=== PATIENT | female | born 1995 | race Caucasian/White ===

== ENCOUNTER 2025-03-19 17:49 | Observation (INO) | payer OTHER, SELFPAY ==
[2025-03-19] VITALS (8 sets, daily range): BP systolic 126–137; BP diastolic 79–88; BMI 29.2
[2025-03-19 12:37] LABS: Hematocrit 34.6 % (37.0-47.0); Hemoglobin 11.9 g/dL (12.0-16.0); Mean Corp Hgb Conc. 34.4 g/dL (33.0-37.0); Mean Corpuscular Volume 92.0 fL (81.0-99.0); Nucleated Red Blood Cells % 0 %; Platelet Count 264 10^3/uL (130-400); Red Cell Dist. Width 12.7 % (11.5-14.5)
[2025-03-19 12:50] LABS: ALT (SGPT) 35 U/L (0-35); AST (SGOT) 42 U/L (14-36); Albumin 4.1 g/dl (3.5-5.0); Alkaline Phosphatase 111 U/L (38-126); Blood Urea Nitrogen 11 mg/dl (7-17); Calcium 9.6 mg/dl (8.4-10.2); Carbon Dioxide 25 mmol/L (22-30); Chloride 109 mmol/L (98-107); Estimated Creatinine Clearance > 125 ml/min; Glucose 123 mg/dl (70-99); Potassium 4.3 mmol/L (3.5-5.1); Sodium 141 mmol/L (135-145); Total Protein 7.0 g/dl (6.3-8.2); eGFR > 60.00
--- NOTE | 2025-03-19 12:54 | ED.GENMED ---
History of Present Illness
General
Chief Complaint: Fainting Sensation
Time Seen by Provider: 03/19/25 12:34
Nursing documentation reviewed up to this point in time: agreed with
History of Present Illness
History of Present Illness:
29-year-old G2, P2 female presents to the ER for evaluation of near fainting episode that occurred just prior to calling 911 today. Patient reports that she was discharged from [facility] yesterday after . She reports that her
blood pressure has been elevated in the hospital and that they were concerned as her liver function studies had increased in the prior 24 hours. She was discharged home on Procardia and advised to have outpatient labs performed today for close
outpatient follow-up. She states that she has been eating and drinking. She did not get much sleep last night as she is breast-feeding. She states that she had a headache last night which resolved after she took 2 Tylenol and 1 ibuprofen at 3 in
the morning. She states that when she woke up this morning she was feeling much better with complete resolution of her headache and normal blood pressure. She started to notice some lumps beneath her chin and then started to feel some swelling in
her throat. She then reports that she was feeling palpitations, difficulty breathing, got tingly all over her body and felt as though she was going to pass out. This episode prompted her to call 911. She does have a prior history of
anxiety but has never experienced such a panic attack before. She denies any peripheral edema. She has been urinating without difficulty. She reports minimal vaginal bleeding. She did take her Procardia this morning. Patient is feeling tearful
and upset but has resolution of her symptoms of paresthesias and difficulty breathing at time of my exam. Patient also reports that she has been experiencing an outbreak of herpes labialis-she has taken 1 g of Valtrex yesterday and today
Past History
Past History
ED Past Medical History: HTN, Hypothyroidism and Psychiatric (bipolar)
ED Past Surgical History: None
Social History
Tobacco: Non-smoker
Alcohol: None
Living: with family
Phy Exam
Physical Exam
Physical Exam:
Vital signs reviewed, blood pressure normal, mucous membranes moist, conjunctiva pink, no sublingual swelling, posterior pharynx is clear, multiple intact vesicles present on mid lower lip at the vermilion border, submental palpable lymphadenopathy
present with mild tenderness on palpation, no significant anterior cervical lymphadenopathy noted, no JVD, heart regular rate and rhythm without murmurs recta B, lungs are clear to auscultation without wheezes rales or rhonchi, abdomen is soft and
appropriately tender, surgical incision appears well-healing with Steri-Strips intact, faint fine macular blanching rash present across anterior abdomen appearing excoriated, extremies with trace edema bilateral feet, 2+ DP pulses present with brisk
cap refill to the toes, GCS is 15, no dysdiadochokinesia, no ataxia, no pronator drift
Course
Orders/Labs/Results
Orders:
Orders
03/19/25 11:16
Electrocardiogram (*1) Urgent
Reason for Study: Syncope
EKG- Treatment ONCE
03/19/25 12:18
Complete Blood Count/With Diff Urgent
Comprehensive Metabolic Panel Urgent
03/19/25 12:54
Troponin I Urgent
Urinalysis Urgent
Date Specimen was Collected: 03/19/25
Time Specimen was Collected: 12:52
Urine Microscopic Urgent
Date Specimen was Collected: 03/19/25
Time Specimen was Collected: 12:52
03/19/25 13:20
CR Chest - 2 Views Urgent
Comment:
Reason For Exam: dyspnea
03/19/25 14:34
Acetaminophen [Tylenol] 1,000 mg PO NOW STA
03/19/25 15:38
Electrocardiogram (*1) Urgent
Reason for Study: Chest Pain
EKG- Treatment ONCE
03/19/25 15:40
Troponin I Urgent
03/19/25 17:27
Admit/Transfer Patient As Directed
Co-Sign Provider:
Level of Care: Observation services
Assign to:: IVU
Physician / Group: Andres Justice
Diagnosis: near syncopal episode, chest tightness, elevated troponin
03/19/25 17:30
Code Status As Directed
Resuscitation Status: Full Code
03/19/25 17:35
PRN Pain Medication Management As Directed
May give lesser potent ordered pain med per pt: Yes
preference::
Protocol:: Medication orders for pain may be administered in a
manner that supports deferring to patient preference
when the pt is:
- Requesting an ordered lesser potent pain medication.
Least to most potent pain medications are defined
as: acetaminophen < NSAID < tramadol < opioids
(morphine, oxycodone, hydromorphone).
- Requesting a lesser dose of the same medication IF
ORDERED.
- Requesting a less intrusive route of administration
if both routes are prescribed by the provider (PO <
IV).
Abnormal Lab Results
03/19/25 03/19/25 03/19/25
12:18 12:54 15:40
RBC 3.76 L 10^6/uL
(4.20-5.40)
Hgb 11.9 L g/dL
(12.0-16.0)
Hct 34.6 L %
(37.0-47.0)
MCH 31.6 H pg
(27.0-31.0)
MPV 10.6 H fL
(7.4-10.4)
Absolute Lymphs (auto) 1.1 L 10^3/uL
(1.2-3.4)
Lymphocytes % 14.7 L %
(20.5-51.1)
Chloride 109 H mmol/L
(98-107)
Glucose 123 H mg/dl
(70-99)
AST 42 H U/L
(14-36)
Troponin I 0.064 H* ng/ml 0.042 H* D ng/ml
Urine Occult Blood 4+ A
(Negative)
Urine Bacteria Few A
(Negative)
03/19/25 12:18
03/19/25 12:18
Initial troponin slightly elevated. Repeated troponin still elevated. EKG is nonischemic. No proteinuria. Minimal elevation in LFTs.
Vital Signs
Initial and Last Documented VS:
Initial Vital Signs
Temp Pulse Resp BP Pulse Ox
98.0 F 98 20 129/83 98
03/19/25 11:19 03/19/25 11:19 03/19/25 11:19 03/19/25 11:19 03/19/25 11:19
Last Documented Vital Signs
Temp Pulse Resp BP Pulse Ox
98.0 F 86 19 126/81 100
03/19/25 11:19 03/19/25 16:45 03/19/25 16:45 03/19/25 12:24 03/19/25 16:45
Comment
Comment:
Reviewed full patient presentation with both OB on-call locally and [place] [employer] Dr. Salmon who is familiar with patient. She was able to review patient medical record with me. We discussed all test results and workup today, would not feel
event or current presentation consistent with preeclampsia. Would recommend treatment of troponin elevation as per usual routine. I will discuss with hospitalist for admission for further trending and evaluation.
MDM/Problems Addressed
Differential Diagnosis Includes:
Differential diagnosis considered but not limited to panic reaction, arrhythmia, cardiomyopathy, allergic reaction, reactive lymphadenopathy to herpes labialis, dehydration, preeclampsia along with other etiologies considered
Chronic conditions affecting care:
Recent
*Radiology
Radiology exam reviewed: preliminary read by ED provider (I dependently viewed and interpreted chest x-ray showing clear lungs, normal cardiac silhouette)
*Pulse Oximetry
SaO2: 100
Oxygen Mode of Delivery: Room air
Patient hypoxic: no
*EKG
Interpreted by ED Provider?: Yes (I dependently viewed and interpreted rhythm strip showing normal sinus rhythm incomplete right bundle branch block, I independently viewed and [id number] EKG showing normal sinus rhythm, rate 80, normal
axis, incomplete right bundle branch block, no ST elevation, similar comp 09/21/14)
EKG Intrepretation Date: 03/19/25
EKG Intrepretation Time: 13:01
*Critical Care Note
Total Time (30-74mins, 75-104mins- exclusive of procedures): Not Applicable
Update Note
Update Note:
EKG and troponin are repeated at 1545. I independently viewed and interpreted rhythm strip showing normal sinus rhythm, no ectopy. I independently viewed and interpreted twelve-lead EKG showing normal sinus rhythm, rate 81, normal axis, normal
intervals, borderline incomplete right bundle branch block, no ST elevations. No significant change compared to prior, no evidence for ischemia
ED Attending Note
-
Portions of this chart may have been created with voice recognition software.� Occasional wrong word or��sound alike� substitutions may have occurred due to the inherent limitations of voice recognition software.
Discharge Plan
Departure
Patient Disposition: Admit
Date of Disposition: 03/19/25
Time of Disposition: 16:44
Admit to: Telemetry
Presentation/result/management discussed w/ accepting MD/DO: Hospitalist
Discharge Problem:
Elevated troponin I level, Near syncope
Interventions
Interventions:
*Risk Screen - Suicide Last Done: 03/19/25 12:21
*General Assessment Last Done: 03/19/25 11:19
*Neglect/Abuse Screening Last Done: 03/19/25 12:21
*ED- Fall Risk Assessment Last Done: 03/19/25 12:21
*ED COVID-19 Vaccine History Last Done: 03/19/25 12:21
ED- Cardiac Assessment Last Done: 03/19/25 12:26
ED- Neurological Assessment Last Done: 03/19/25 12:26
[2025-03-19 13:13] LABS: Urine Character Clear (Clear)
[2025-03-19 13:31] LABS: Urine Red Blood Cell 0-2 /HPF (0-2); Urine Squamous Cell 21-25 /LPF (Few)
[2025-03-19 13:43] LABS: Troponin I 0.064 ng/ml
[2025-03-19] MEDS: TYLENOL 1000 MG PO ×2 (14:56→22:29)
[2025-03-19 16:21] LABS: Troponin I 0.042 ng/ml
--- NOTE | 2025-03-19 16:34 | HPS.HSE ---
Family Physician
-
Family Physician: Billie Colon MD
Chief Complaint
-
near syncopal episode
History of Present Illness
Patient is a 29-year-old female with past medical history significant for hypertension, anxiety/depression and Hx herpes labialis who presented to [facility] ED for evaluation of near syncopal episode. Patient reports that she is post day 4 from
and while in [place] she was informed her blood pressure was elevated and was started of nifedipine. Prior to her discharge she was instructed if she had developed headache, blood pressure increased or she had swelling to return to
hospital for evaluation. She states she was discharged home yesterday afternoon, she did develop a headache and improved with Tylenol and Motrin, blood pressure increased to 150s systolically but also improved after some sleep. She states her sleep
was intermittent as new born was cluster feeding throughout night. While brushing her teeth today she had a episode where she felt she could not take a deep breath, was lightheaded, had significant chest tightness and palpitations. She also reports
significant chills just as episodes resolved. Entire episode lasted <5 minutes and resolved without intervention. She felt as if she was going to pass out and with inability to get a deep breath she had her boyfriend call 911 as she was concerned
something was wrong. She denies fever, cough, diaphoresis, nausea or vomiting.
Medical History
Past Medical History
Past Medical History: Reports Other
Additional Past Medical History:
hypertension
anxiety/depression
bipolar
Hx herpes labialis
Past Surgical History: Reports Other
Additional Past Surgical History:
abdominal abscess x3
x2
Social History
Tobacco: Vaping
Alcohol: None
Drug: None
Personal: Partner
Living: With Family
Family History
Family History: Not pertinent
Allergies / Home Medications
Allergies reflects when Allergies were last updated in [employer].
Home Medications with original date entered in [employer]
Allergy/Medication List:
Allergies
Allergy/AdvReac Type Severity Reaction Status Date / Time
chlorohexadine Allergy Rash Uncoded 03/19/25 11:19
Home Medications
acetaminophen 325 mg tablet (Tylenol) 975 mg PO DAILYPRN PRN mild pain 03/19/25
fluoxetine 20 mg capsule 20 mg PO MOWEFR 03/19/25
nifedipine 30 mg tablet,extended release 24 hr 30 mg PO DAILY 03/19/25
vit no.95-ferrous fumarate 28 mg-folic acid 800 mcg tablet () 1 tab PO DAILY 03/19/25
valacyclovir 1 gram tablet (Valtrex) 1,000 mg PO BID 03/19/25
Review of Systems
-
History Source: Patient
Constitutional: Reports Chills
Cardiac: Reports Palpitations and Other (near syncope and chest tightness )
Neurological: Reports Dizzy (lightheadednes )
Physical Exam
Vital Signs
Vital Signs
Temp Pulse Resp BP Pulse Ox
98.0 F 84 16 126/81 96
03/19/25 11:19 03/19/25 15:30 03/19/25 15:30 03/19/25 12:24 03/19/25 13:45
Physical Exam
General: Well Developed, Well Nourished, No Apparent Distress, Comfortable, Conversant and Morbidly Obese
HEENT: NormoCephalic, Moist mucous membranes, Atraumatic, [place] Conjunctivae, Nose Appears Normal and Ears Appear Normal
Respiratory: Clear
Cardiac: S1/S2 and Regular Rhythm; No Murmur, Rub, Gallop or Peripheral Edema
Breast: Deferred by me
GI: Soft, Non Tender, Non Distended and Normal Bowel Sounds; No Organomegaly
Rectal: Deferred by Provider
Genito-urinary: Deferred by me
Musculoskeletal: No Clubbing, No Cyanosis and No Edema
Skin: Warm and IV/Catheter Site
Neuro: Awake, Alert, AO x 3 and Nonfocal/grossly intact
Psych: Calm and Intact Judgment/Insight
Laboratory Results
-
03/19/25 12:18
03/19/25 12:18
Laboratory Results
Total Bilirubin 0.7 mg/dl (0.2-1.3) 03/19/25 12:18
AST 42 U/L (14-36) H 03/19/25 12:18
ALT 35 U/L (0-35) 03/19/25 12:18
Alkaline Phosphatase 111 U/L (38-126) 03/19/25 12:18
Troponin I 0.042 ng/ml H* D 03/19/25 15:40
Data Reviewed
-
Diagnostic Radiology: Report Reviewed by me (CXR: No acute cardiopulmonary process.)
Medical Tests (Nuc Med, Echo, EKG etc): Report Reviewed by me (EKG: NORMAL SINUS RHYTHM)
Lab Data: Labs Reviewed by me (trop 0.064, 0.042)
Impression/Plan
-
IMPRESSION/PLAN:
#near syncopal episode
could not take a deep breath, was lightheaded, had significant chest tightness and palpitations with chills
trop 0.064, 0.042
EKG: NORMAL SINUS RHYTHM
CXR: No acute cardiopulmonary process.
- Admit to IVU
- Consult Cardiology (requested Dr. See group, [facility])
- trend troponin
- ECHO in AM
#hypertension
- continue nifedipine
#anxiety/depression
- continue fluoxetine
#Hx herpes labialis
- continue valacyclovir
Code status: full code
DVT prophylaxis: Lovenox sq
--- NOTE | 2025-03-19 17:57 | W.PN.UPDATE ---
Update Note
Progress Note Update
I saw and examined the patient.
The DRAPERY HAND's note was reviewed and I agree with the note.
Patient is a 29F with essential HTN, depression/anxiety, post day 4 came to ER after having new onset of chest discomfort, palpitation and shortness breath episode last night . Patient denies having any previous history of cardiac issues.
Symptoms were significant and lasting for 5-10 minutes. Chest pain was deep-seated/pressure-like with no radiation. No diaphoresis nausea. Patient have shortness of breath with that which passed.
HEENT: No pallor, cyanosis, or jaundice. Throat clear.
NECK: Supple. No JVD.
RESPIRATORY: Lungs clear to auscultation.
CVS: S1, S2 normal. RRR. No murmur, rub or gallop.
ABDOMEN: Soft, non-tender. No distension. BS+/normal.
EXTREMITIES: No peripheral cyanosis or edema.
LEAN SPECIALIST: AOx3. No focal deficits.
Chest pain episode
Elevated troponin
- Minimally elevated troponin of 0.06 > 0.04
-Echocardiogram for tomorrow morning
-Cardiology evaluation
-Monitor on telemetry overnight for further episodes
-CT chest PE to rule out any blood clots
Essential hypertension
-0 continue home dose of nifedipine
Herpes labialis flareup
- Provide Valtrex course
Depression/anxiety
- Continue on fluoxetine
DVT prophylaxis SCD
Full code
--- NOTE | 2025-03-19 19:38 | CON.CAR ---
Consultation
Consultation Request
Date/Time Consultation Requested: 03/19/2025 at 5:29 PM
Date/Time Consultation Performed: 03/19/2025 at 7:00 PM
Requesting Provider: BRIAN Calvillo
Performing Provider: Barron Alexander MD
Reason for Consultation: chest pain, elevated troponin
Medical History
-
Chief Complaint: Shortness of breath, chest pressure
History of Present Illness:
29-year-old female with a history of hypertension, gestational diabetes, and family history of coronary artery disease who presents for an episode of shortness of breath and chest pressure. Patient underwent uncomplicated on 03/15/2025 at
[facility]. This was her second and was complicated by gestational diabetes. , on 03/18/2025 prior to being discharged, she had an elevated blood pressure and was diagnosed with hypertension. She was started on
nifedipine 30 mg daily and received her first dose yesterday prior to being discharged. Overnight last night she had 1 episode of elevated blood pressure with systolics in the 150s. She was asymptomatic and this occurred overnight. She was able
to go back to sleep with no issue. This morning when she woke up her blood pressure was 120/70s. She took her nifedipine 30 mg. Later that morning she was gargling with mouthwash when she suddenly felt short of breath. She spit it out but the
dyspnea persisted. She then started to feel chest tightness and dizziness. She was seeing stars. She ran down to tell her boyfriend and told him to call 911. She thinks overall the episode lasted about 3 minutes. She is now asymptomatic but in
the ER her troponin was slightly elevated (0.064 -> 0.042) so cardiology was consulted.
Of note, she was diagnosed with hypertension in 2020 and was on medication for a brief period of time and referred to cardiology. This resolved and she was taken off medications. She thinks she saw cardiology at [facility]. With her first
she had gestational hypertension and diabetes and ultimately underwent induction for gestational hypertension. With this as above, she had gestational diabetes but did not develop hypertension until . She has no
family history of early coronary artery disease but her sister does have long QT syndrome. Patient has never been tested for this. She is a former smoker (mostly social). She also drinks alcohol socially and does not use any drugs. She is
currently breast-feeding.
Past Medical History
Past Medical History: HTN and Other (gestational DM)
Past Surgical History:
Social History
Tobacco: Former Smoker
Alcohol: Occasional
Drug: Former User
Personal: Partner
Living: With Family
Family History
Family History: Reviewed & Not Pertinent and Other (No early CAD, sister has long QT)
Allergies / Home Medications
Allergy/AdvReac Type Severity Reaction Status Date / Time
chlorohexadine Allergy Rash Uncoded 03/19/25 11:19
�Medication �Instructions �Recorded �Confirmed �Type
acetaminophen 325 mg tablet 975 mg PO DAILYPRN PRN mild pain 03/19/25 03/19/25 History
(Tylenol)
fluoxetine 20 mg capsule 20 mg PO MOWEFR 03/19/25 03/19/25 History
nifedipine 30 mg tablet,extended 30 mg PO DAILY 03/19/25 03/19/25 History
release 24 hr
vit no.95-ferrous 1 tab PO DAILY 03/19/25 03/19/25 History
fumarate 28 mg-folic acid 800 mcg
tablet ()
valacyclovir 1 gram tablet 1,000 mg PO BID 03/19/25 03/19/25 History
(Valtrex)
Review of Systems
-
All other systems: Negative unless noted
Physical Exam
Vital Signs
Temp Pulse Resp BP Pulse Ox
98.0 F 84 24 126/87 96
03/19/25 11:19 03/19/25 18:45 03/19/25 18:30 03/19/25 18:23 03/19/25 18:45
Lab Results
03/19/25 12:18
03/19/25 12:18
Troponin I 0.042 ng/ml H* D 03/19/25 15:40
Physical Exam
General: Well Developed, Well Nourished and No Apparent Distress
Respiratory: Clear and Non Labored Respirations; Negative Crackles
Cardiac: S1/S2 and Regular Rhythm; Negative Murmur or Peripheral Edema
Neuro: AO x 3
Impression / Plan
-
29-year-old female with a history of hypertension, gestational diabetes, and family history of coronary artery disease who presents for an episode of shortness of breath and chest pressure, found to have mildly elevated troponin.
Elevated troponin
-Chest pain-free. Nonischemic ECG. Troponin 0.064 at peak
-Differential diagnosis includes PE versus NSTEMI versus nonischemic myocardial injury
-Follow-up CT PE
-Okay to stop trending troponins given that it is downtrending
-She should have a CTA coronaries to rule out spontaneous coronary artery dissection. Need to coordinate with radiology.
-Echocardiogram tomorrow
-If all of her testing is normal, this may just be due to demand in the setting of recent and hypertension, but we need to rule out life-threatening diagnoses
Gestational hypertension
-Continue nifedipine
Family history of long QT syndrome
-QTc 471 ms on most recent EKG
-Needs outpatient workup
Data Reviewed
-
EKG: Tracing Personally Visualized and interpreted, Discussed with Physician and Discussed with Patient
Radiology: Image Personally Visualized and interpreted
Labs: Labs Reviewed by me, Discussed with Physician and Discussed with Patient
--- NOTE | 2025-03-19 20:30 | PTCARENOTE ---
Patient arrived from ER via stretcher. Standing scale weight 81.9 kg. Patient A+A+Ox3. No neurological deficits noted. No c/o headache, dizziness or lightheadedness. No c/o pain or discomfort. Patient now resting in bed. Patient with breast
pump - Will pump as needed. consult to be placed. Sinus Rhythm. Heart rate 70's. Blood pressure 137/83 (101). Patient with no c/o chest pain, pressure or discomfort. Normoactive bowel sounds. Bowel and bladder within normal limits.
Lower abdomen with healing incision and 9 steri strips intact - s/p 4 days ago. No edema noted. Positive, palpable pulses. Afebrile. Assessment as documented.
[2025-03-19 22:53] LABS: Troponin I < 0.012 ng/ml
--- NOTE | 2025-03-20 | PTCARENOTE ---
House Provider, Ana Hammer TERADATA ARCHITECT, notified pertaining to patient's request to not take Enoxaparin Sodium and need for pain medication. Lovenox held. Extra Strength Tylenol 1,000mg PO ordered and given. Patient transported to CT Chest PE Study
via wheelchair without difficulty. Patient back in room, resting in bed. Assessment as documented.
[2025-03-20 00:12] VITALS: BP 135/84
[2025-03-20 00:15] VITALS: BP 135/84
[2025-03-20 03:05] VITALS: BP 138/88
--- NOTE | 2025-03-20 03:15 | W.PN.UPDATE ---
Update Note
Progress Note Update
~ Received CT chest with IV contrast angiogram, preliminary read:
IMPRESSION: Technically adequate study. Apparent filling defect within a right lower lobe posterior subsegmental pulmonary artery (303/171) possibly artifactual although a single subsegmental PE is not excluded. No other pulmonary embolism. No
aortic dissection. Cardiac size within normal limits. No lung consolidation, pneumothorax or pleural effusion.
TT sent to loss mitigation specialist Cardiology, no new orders at this time, wait for final read and our radiologist to review.
[2025-03-20 03:29] LABS: Hematocrit 29.8 % (37.0-47.0); Hemoglobin 10.7 g/dL (12.0-16.0); Mean Corp Hgb Conc. 35.9 g/dL (33.0-37.0); Mean Corpuscular Volume 90.9 fL (81.0-99.0); Platelet Count 241 10^3/uL (130-400); Red Cell Dist. Width 12.5 % (11.5-14.5)
--- NOTE | 2025-03-20 03:45 | PTCARENOTE ---
Patient A+A+Ox3. No neurological deficits noted. No c/o headache, dizziness or lightheadedness. No c/o pain or discomfort. AM lab work collected and sent. EKG completed. Preliminary Radiology Report sent to House Provider, Nickie Hammer FASHION PHOTOGRAPHER -
No new orders now. Will wait for final read. Assessment/Interventions as documented. Patient back to sleep.
[2025-03-20 03:55] LABS: Blood Urea Nitrogen 13 mg/dl (7-17); Calcium 9.1 mg/dl (8.4-10.2); Carbon Dioxide 23 mmol/L (22-30); Chloride 110 mmol/L (98-107); Estimated Creatinine Clearance > 125 ml/min; Glucose 92 mg/dl (70-99); HDL Cholesterol 57 mg/dl; LDL Cholesterol, Calculated 185 mg/dl; Potassium 3.8 mmol/L (3.5-5.1); Sodium 138 mmol/L (135-145); Very Low Density Lipoprotein 33 mg/dl (0-30); eGFR > 60.00
[2025-03-20 04:05] LABS: Troponin I < 0.012 ng/ml
[2025-03-20 08:25] LABS: Glycohemoglobin (HgbA1c) 5.0 % (4.0-5.6)
--- NOTE | 2025-03-20 08:30 | PTCARENOTE ---
Assumed care of pt from prev nursing shift; Pt AAOx3 w/no c/o CP or SOB. Pt does c/o 'mild' 4/10 lower pelvic pain at her incision site. PRN PO Tylenol administered as ordered. VSS w/HR in the 50's-60's & BP elevated at 134/102 this AM. Scheduled PO
nifedipine administered as ordered. Plan of care discussed w/pt & no addtl needs at this time.
[2025-03-20 08:31] VITALS: BP 134/102
[2025-03-20] MEDS: TYLENOL 1000 MG PO (08:32)
[2025-03-20] MEDS: PROCARDIA XL (EXTENDED RELEASE) 30 MG PO (08:32)
[2025-03-20] MEDS: PRENATAL PLUS 1 TABLET PO (08:32)
[2025-03-20] MEDS: VALTREX 1000 MG PO (08:33)
--- NOTE | 2025-03-20 08:52 | W.PN.HOSP.TC ---
Today's Communication/Plan
-
await ECHO and cards eval
Assessment / Plan
Assessment / Plan
pt is a 29 year old female
Near syncope--Chest pain episode--presumed nonischemic myocardial injury as cause of downtrending elevated troponin--apprec cards--CT PE with either artifact vs acute small peripheral PE in RLL--await echo--consider pulm consult?--unclear if pt
should be on anticoagulation based on equivocal CT scan?
Essential hypertension--happened post --on nifedipine--BP still high--? need to change dose--will defer to cards
Herpes labialis flareup--valcyclovir
Depression/anxiety- Continue on fluoxetine
DVT prophylaxis SCD
Full code
Anticipated Discharge: Within 24 hours
Subjective/Interval History
-
Date of Service: March 20, 2025
pt without c/o
Objective Data
-
Labs:
Laboratory Results
03/20/25
03:13
WBC 7.5
Hgb 10.7 L
Hct 29.8 L
Plt Count 241
Sodium 138
Potassium 3.8
Chloride 110 H
Carbon Dioxide 23
BUN 13
Creatinine 0.7
Glucose 92
Calcium 9.1
Vital Signs:
max temp for 24 hours
03/19/25
20:00
Temp 99.4 F
Vital Signs
Temp Pulse Resp BP Pulse Ox
99.5 F 79 18 134/102 100
03/20/25 08:32 03/20/25 08:31 03/20/25 08:32 03/20/25 08:31 03/20/25 08:32
I&O
03/19/25 03/20/25 03/21/25
06:59 06:59 06:59
Intake Total 480 / 480 480 / 480
Balance 480 / 480 480 / 480
Review of Systems
-
All other systems: Reviewed and negative
Physical Exam
-
General: Well Developed, Well Nourished and No Apparent Distress
HEENT: Normocephalic and Atraumatic
Respiratory: Clear to Auscultation; Negative Wheezes or Rhonchi
Cardiac: Regular Rhythm and S1/S2; Negative Murmur
GI: Soft, Nontender, Nondistended and Normal Bowel Sounds
Musculoskeletal: No Clubbing, No Cyanosis and No Edema
Skin: Other (tattoos)
Neuro: Awake and Alert
Psych: Calm
[2025-03-20 09:21] VITALS: BP 131/73
--- NOTE | 2025-03-20 10:37 | W.PN.CD ---
Today's Communication / Plan
-
No anticoagulation
Follow-up echo
If echo is normal, she can be discharged with outpatient follow-up
CTA coronaries outpatient
Impression / Plan
-
29-year-old female with a history of hypertension, gestational diabetes, and family history of coronary artery disease who presents for an episode of shortness of breath and chest pressure, found to have mildly elevated troponin.
Elevated troponin
-Chest pain-free. Nonischemic ECG. Troponin 0.064 at peak. CTPE showed possible small PE vs artifact. I favor artifact given that PE would have to be large to cause presyncope. We will not start her on anticoagulation.
-Suspect elevated troponin is nonischemic in the setting of recent surgery and hypertension. We will rule out scad with outpatient CTA coronaries.
-Echocardiogram today
-If echo is normal, she can be discharged with outpatient follow-up
Gestational hypertension
-Continue nifedipine
Family history of long QT syndrome
-QTc 471 ms on most recent EKG
-Needs outpatient workup
Physical Exam
Vital Signs/Labs
Vital Signs
Temp Pulse Resp BP Pulse Ox
99.5 F 79 18 134/102 100
03/20/25 08:32 03/20/25 08:31 03/20/25 08:32 03/20/25 08:31 03/20/25 08:32
03/19/25 03/20/25 03/21/25
06:59 06:59 06:59
Actual Weight 180 lb 8.937 oz
03/20/25 03:13
03/20/25 03:13
Triglycerides 169 mg/dl (10-149) H 03/20/25 03:13
LDL Cholesterol, Calc 185 mg/dl 03/20/25 03:13
VLDL Cholesterol, Calc 33 mg/dl (0-30) H 03/20/25 03:13
HDL Cholesterol 57 mg/dl 03/20/25 03:13
LAB Results
03/19/25 03/19/25 03/19/25
12:54 15:40 22:18
Troponin I 0.064 H* 0.042 H* D < 0.012 D
03/19/25 03/20/25
22:55 03:13
Troponin I Cancelled < 0.012
Physical Exam
Constitutional: No acute distress and Comfortable
Cardiovascular: Rhythm & rate is regular, Pedal edema is absent, S1S2 is normal and Murmur/rub/gallop absent
Respiratory: Respiratory effort normal and Lungs clear to auscul.
Neuro/Psych: AO x 3
Data Reviewed
-
Date of Service: March 20, 2025
Medical Decision Making: Reviewed Test Results, Independent Historian Assessment, Test Interpretation and Review of Case with other Provider
EKG: Tracing Personally Visualized and interpreted
Echo: Ordered by me
X-Ray/CT/US/MRI/NUC/PET: Image Personally Visualized and interpreted
Labs: Labs Reviewed by me
[2025-03-20 12:20] VITALS: BP 126/80
--- NOTE | 2025-03-20 13:20 | PTCARENOTE ---
Pt's IV line & gambling monitor D/C'd. Discussed D/C instructions w/pt & pt given copies of echocardiogram & Chest CT as requested. Pt escorted out by staff via WC w/pt's sister driving her home.
--- NOTE | 2025-03-20 14:50 | W.DCSUMMARY ---
Discharge Summary
Discharge Data
Date of Admission: 03/19/25
Date of Discharge: 03/20/25
-
Pending Results: No
Hospital Course
Primary care physician : Billie Colon
Principal Discharge diagnosis : Near syncope
Chronic Discharge diagnosis : Essential hypertension, herpes labialis flareup, depression/anxiety
Hospital Course : Patient was a 29-year-old female who has a history of essential hypertension who is 4 days from a at [facility]. She was informed her blood pressure was elevated and she was started on nifedipine.
Patient was discharged home the day prior to admission and developed headache which improved with Tylenol and Motrin. Blood pressures were increased to the 150s systolic but also improved after sleep. Sleep is intermittent as her was
breast-feeding throughout the night. She had an episode on the day of admission where she felt she could not take a deep breath, was lightheaded, and had significant chest tightness and palpitations. She felt as if she were going to pass out and
also had inability to take a deep breath. Patient was admitted.
Problem #1: Near syncope. Concern was for pulmonary embolism. Patient was seen in consultation by cardiology. She had nonischemic myocardial injury as the cause of elevated troponin which was downtrending. CAT scan of the chest was being read as
artifact versus a small acute peripheral pulmonary embolism in the right lower lobe. Echocardiogram was done and was normal. Based on this information, cardiology does not recommend anticoagulation and feels that it would have to be a larger clot
burden to trigger near syncope. She has been cleared for discharge by cardiology.
Problem #2: All other medical issues. These include Essential hypertension, herpes labialis flareup, depression/anxiety. These medical issues were stable during her hospitalization. Medications were continued as able.
Patient is stable for discharge home at this time. If there are any questions regarding this dictation or her hospital stay, please do not hesitate to call. Our office number is [phone].
Time for discharge 31 minutes.
Important imaging findings :
CT CHEST IMPRESSION:
Either artifactual filling defect or single small peripheral pulmonary embolism in the right lower lobe, as detailed above.
Discharge Plan
-
Patient Disposition: Home (Routine Discharge)
Discharge Diagnosis/Procedures: Near syncope, essential hypertension, herpes labialis flareup, depression/anxiety
Condition: Good
Diet: As tolerated and Regular
Activity: As tolerated
Driving Restrictions: As prior to admission
Referrals:
Barron Alexander MD [Active, Cardiology]
Referral Note: call for appointment--eval for long QT syndrome
Billie Colon MD [Family Provider] - in less than 1 week
Prescriptions:
Continued
nifedipine 30 mg Tablet Extended Release 24hr
30 mg PO DAILY
acetaminophen [Tylenol] 325 mg Tablet
975 mg PO DAILYPRN PRN (Reason: mild pain)
valacyclovir [Valtrex] 1 gram Tablet
1,000 mg PO BID
fluoxetine 20 mg Capsule
20 mg PO MOWEFR
PNV no.95-ferrous fumarate-FA [] 28 mg iron- 800 mcg Tablet
1 tab PO DAILY
Discharge Orders:
Discharge Patient (As Directed); Ordered 03/20/25
Ordered By: Precious Fuentes
Care Plan Goals
Care Plan Goals:
Problem: Readiness for enhanced knowledge related to diagnosis and treatment plan
Goal: Understand your diagnosis and treatment plan needs, including medications if applicable.
Instructions: Know your diagnosis, underlying causes and treatment plan options, including medications if applicable. Consult with your health care team to learn about your diagnosis and treatment plan, including medications if applicable.
Discharge Date and Time
Discharge Date/Time: 03/20/25 13:25
Print Language: DIVEHI
--- NOTE | 2025-03-20 16:42 | CM ---
pt prev indep, lives with her s.o. in a 2 story home. no dc planning needs or dme's noted. plan is for dc to home when medically stable.
== END 2025-03-20 13:25 | disposition home or self-care (01) ==
LOC: IVU 17:49
PROVIDERS: Emergency Medicine; Nurse Practitioner Family; ADMITTING PHYSICIAN Hospitalist; ATTENDING PHYSICIAN Internal Medicine; CONSULT PHYSICIAN Student in an Organized Health Care Education/Training Program; EMERGENCY PHYSICIAN Emergency Medicine; FAMILY PHYSICIAN Family Medicine
DX: O90.89 Other complications of the puerperium, not elsewhere classified (principal); R55 Syncope and collapse; O98.33 Other infections with a predominantly sexual mode of transmission complicating the puerperium; A60.04 Herpesviral vulvovaginitis; O99.345 Other mental disorders complicating the puerperium; O13.5 Gestational [pregnancy-induced] hypertension without significant proteinuria, complicating the puerperium; F31.9 Bipolar disorder, unspecified; R79.89 Other specified abnormal findings of blood chemistry; F41.9 Anxiety disorder, unspecified; Z79.624 Long term (current) use of inhibitors of nucleotide synthesis; Z79.899 Other long term (current) drug therapy
CPT/HCPCS: 71046; 71275; 80048; 80053; 80061; 81003; 81015; 83036; 84484; 85025; 85027; 87070; 93005; 93306; 99285; G0378; Q9967

== ENCOUNTER → 2025-04-13 10:21 | Outpatient (REF) | payer OTHER, SELFPAY | LOC: RAD 10:21 | PROVIDERS: ATTENDING PHYSICIAN Student in an Organized Health Care Education/Training Program; FAMILY PHYSICIAN Family Medicine; REFERRING PHYSICIAN Nurse Practitioner | DX: R94.31 Abnormal electrocardiogram [ECG] [EKG] (principal) | CPT/HCPCS: 93005 ==